=== PATIENT | female | born 1970 | race Two or more races ===

== ENCOUNTER 2017-09-10 09:09 | Emergency (ER) | payer OTHER ==
[2017-09-10 11:01] VITALS: BP 133/89
== END 2017-09-10 11:01 | disposition home or self-care (01) ==
LOC: ED 09:09
DX: M75.31 Calcific tendinitis of right shoulder (principal); I10 Essential (primary) hypertension

== ENCOUNTER 2020-01-13 16:56 | Emergency (ER) | payer OTHER ==
[~2020-01-13] VITALS: Ht 167.6 cm; Wt 68.5 kg
[2020-01-13 17:00] VITALS: Ht 167.6 cm; Wt 68.5 kg
[2020-01-13 20:18] VITALS: BP 116/87
== END 2020-01-13 20:18 | disposition home or self-care (01) ==
LOC: ED 16:56
DX: J02.9 Acute pharyngitis, unspecified (principal); R13.12 Dysphagia, oropharyngeal phase

== ENCOUNTER 2021-01-29 16:03 | Emergency (ER) | payer OTHER ==
[~2021-01-29] VITALS: Ht 165.1 cm; Wt 72.1 kg
[2021-01-29 16:16] VITALS: Ht 165.1 cm; Wt 72.1 kg
[2021-01-29] MEDS ORDERED: IBU600 M2 PO (17:22)
[2021-01-29] MEDS ORDERED: ULTRAM50 MG PO (17:22)
[2021-01-29 17:30] VITALS: BP 107/75
== END 2021-01-29 17:30 | disposition home or self-care (01) ==
LOC: ED 16:03
DX: M54.42 Lumbago with sciatica, left side (principal)
CPT/HCPCS: J1885